=== PATIENT | female | born 1995 | race Caucasian/White ===

== ENCOUNTER 2018-02-18 18:06 | Emergency (ER) | payer SELFPAY ==
[~2018-02-18] VITALS: Ht 157.5 cm; Wt 66.7 kg
[2018-02-18 18:17] VITALS: BP 124/77
--- NOTE | 2018-02-18 18:26 | NUR ---
22 yo bib bf w/ c/o vaginal bleeding upon wiping x today; denies injury, denies pain. , reports low placenta. denies n/v/d/fever/chills. denies foul-smell, denies discharge. lmp 11/2017. pt [id number]. gcs 15. cms intact. rr even and unlabored. lungs clear. er md notified. pt needs met. safety precautions in place. will continue to monitor.
--- NOTE | 2018-02-18 19:06 | NUR ---
Dr. Guerrero evaluating patient at bedside.
--- NOTE | 2018-02-18 19:17 | NUR ---
TRANSFER OF CARE AT THIS TIME. REPORT GIVEN TO ERICK VILLANUEVA
--- NOTE | 2018-02-18 19:18 | NUR ---
Ultrasound at bedside.
[2018-02-18 19:39] LABS: BASOPHILS # (AUTO) 0.1 K/uL (0.00-0.22); BASOPHILS % (AUTO) 0.7 % (0.0-2.0); EOSINOPHILS # (AUTO) 0.1 K/uL (0-0.4); EOSINOPHILS % (AUTO) 0.5 % (0.0-4.0); HEMATOCRIT 36.9 % (36-48); HEMOGLOBIN 12.4 g/dL (12.0-16.0); LYMPHOCYTES # (AUTO) 2.5 K/uL (2.5-16.5); MEAN CORPUSCULAR HEMOGLOBIN 30 pg (27-31); MEAN CORPUSCULAR HGB CONC 34 g/dL (33-37); MEAN CORPUSCULAR VOLUME 89.4 fL (80-94); MONOCYTES # (AUTO) 0.7 K/uL (0.8-1.0); NEUTROPHILS # (AUTO) 6.7 K/uL (1.8-7.7); NEUTROPHILS % (AUTO) 66.8 % (42.2-75.2); PLATELET COUNT (AUTO) 330 K/uL (140-450); RED BLOOD CELL COUNT(AUTO) 4.13 MIL/uL (4.20-5.40); WHITE BLOOD COUNT (AUTO) 10.1 K/uL (4.5-11.0)
[2018-02-18 19:40] LABS: APPEARANCE,URINE HAZY (CLEAR); BILIRUBIN,URINE NEGATIVE (NEGATIVE); BLOOD, URINE NEGATIVE (NEGATIVE); COLOR,URINE YELLOW (YELLOW); LEUKOCYTE ESTERASE ,URINE 1+ (NEGATIVE); NITRITE, URINE NEGATIVE (NEGATIVE); UGLUCOSE NEGATIVE (NEGATIVE)
[2018-02-18 19:55] LABS: RBC,URINE 0-5 (RARE) /HPF (0-5)
[2018-02-18 20:20] VITALS: BP 118/74
--- NOTE | 2018-02-20 12:28 | NUR ---
addendum:urine culture results mdro. referred to dr. bruce. no farther tx. needed. patient discharged with approppriate antibiotic macrobid
== END 2018-02-18 20:20 | disposition home or self-care (01) ==
LOC: MED 18:06
DX: O20.0 Threatened abortion (principal); O23.41 Unspecified infection of urinary tract in pregnancy, first trimester; Z3A.11 11 weeks gestation of pregnancy; Z88.0 Allergy status to penicillin
CPT/HCPCS: 36415; 76801; 81001; 84702; 85025; 86900; 86901; 87086; 87186; 99285; Q0092